=== PATIENT | female | born 1980 | race African-American/Black ===

== ENCOUNTER 2021-12-03 23:06 | Inpatient (IN) | payer MEDICAID, OTHER ==
[~2021-12-03] VITALS: Ht 162.6 cm; Wt 63.5 kg
[2021-12-04] MEDS ORDERED: LIDOCAINE HCL/PF 1% 10 MG/ML 5ML VIAL INFIL ONE (00:30)
[2021-12-04] MEDS ORDERED: ACETAMINOPHEN 500MG TABLET PO ONE (00:30)
[2021-12-04] MEDS ORDERED: TETANUS, DIPHTHERIA, PERTUSSIS VAC/PF 0.5ML (>10YR OLD) IM ONE (00:30)
[2021-12-04] MEDS ORDERED: BACITRACIN ZINC OINT UDPKT TOP ONE (00:30)
[2021-12-04] MEDS ORDERED: MORPHINE SULFATE 4 MG/ML CPJ (NOT FOR IM USE) IV ONE (05:00)
[2021-12-04 05:18] LABS: BASOPHILS % 0.9 % (0.0-2.0); HEMATOCRIT. 34.7 % (36.0-48.0); HEMOGLOBIN. 11.3 g/dL (12.0-16.0); LYMPHOCYTES % 24.7 % (20.0-50.0); MEAN CORPUSCULAR HEMOGLOBIN 21.9 pg (28.0-32.0); MEAN CORPUSCULAR VOLUME 67.2 fL (81.0-99.0); MONOCYTES % 4.4 % (2.0-8.0); PLATELET 358 x1000/uL (130-400); RED BLOOD CELL COUNT 5.17 mill/uL (4.2-5.4); RED CELL DISTRIBUTION WIDTH 18.5 % (11.6-14.6)
[2021-12-04 05:29] LABS: CHLORIDE 109 mEq/L (98-107)
[2021-12-04] MEDS ORDERED: CLONIDINE 0.1MG TABLET PO PRN (07:30)
[2021-12-04 08:30] LABS: PLATELET ESTIMATE NORMAL
[2021-12-04 09:25] VITALS: BP 156/99
[2021-12-04] MEDS ORDERED: TRAMADOL 50MG TABLET PO PRN (10:15)
[2021-12-04] MEDS ORDERED: ONDANSETRON HCL 4MG/2ML INJ IV PRN (11:30)
[2021-12-04] MEDS ORDERED: NALOXONE HCL 0.4MG/ML VIAL IV PRN (11:45)
[2021-12-04 12:00] VITALS: BP 147/90
[2021-12-04] MEDS: AMLODIPINE 10MG TABLET PO SCH (12:59)
[2021-12-04] MEDS: LOSARTAN POTASSIUM 50 MG TABLET PO SCH (12:59)
[2021-12-04] MEDS: TRAMADOL 50MG TABLET PO PRN (13:00)
[2021-12-04 15:22] LABS: *BARBITURATES SCREEN URINE NEGATIVE (NEGATIVE); *BENZODIAZEPINES SCREEN URINE NEGATIVE (NEGATIVE); *COCAINE SCREEN URINE NEGATIVE (NEGATIVE); CANNABINOID URINE SCREEN NEGATIVE (NEGATIVE); METHADONE URINE SCREEN NEGATIVE (NEGATIVE); OPIATES URINE SCREEN NEGATIVE (NEGATIVE); PHENCYCLIDINE URINE SCREEN NEGATIVE (NEGATIVE)
[2021-12-04 15:23] LABS: *AMPHETAMINES SCREEN URINE PRESUMTIVE POSITIVE (NEGATIVE)
[2021-12-04 16:00] VITALS: BP 141/89
[2021-12-04] MEDS: ACETAMINOPHEN 325MG TABLET PO PRN (17:26)
[2021-12-04] MEDS ORDERED: PNEUMOCOCCAL 23-VAL P-SAC VAC 0.5 ML IM ONE (18:45)
[2021-12-04 20:00] VITALS: BP 141/93
[2021-12-05] VITALS: BP 146/98
[2021-12-05 04:00] VITALS: BP 139/94
[2021-12-05 08:00] VITALS: BP 142/84
[2021-12-05] MEDS: AMLODIPINE 10MG TABLET PO SCH (09:31)
[2021-12-05] MEDS: LOSARTAN POTASSIUM 50 MG TABLET PO SCH (09:31)
[2021-12-05 12:00] VITALS: BP 138/83
[2021-12-05] MEDS: TRAMADOL 50MG TABLET PO PRN (15:19)
[2021-12-05 16:00] VITALS: BP 126/76
[2021-12-05 20:00] VITALS: BP 132/86
[2021-12-06] VITALS: BP 131/93
[2021-12-06 04:00] VITALS: BP 130/88
[2021-12-06 08:00] VITALS: BP 133/76
[2021-12-06] MEDS: LOSARTAN POTASSIUM 50 MG TABLET PO SCH (08:26)
[2021-12-06] MEDS: TRAMADOL 50MG TABLET PO PRN (08:27)
[2021-12-06] MEDS: AMLODIPINE 10MG TABLET PO SCH (08:27)
[2021-12-06 12:02] VITALS: BP 134/91
[2021-12-06] MEDS: ACETAMINOPHEN 325MG TABLET PO PRN (12:07)
[2021-12-06 14:24] VITALS: BP 134/91
== END 2021-12-06 14:45 | disposition home or self-care (01) | DRG 115 ==
LOC: ER 23:06 → 6WST 12-04 05:28 → EDBEDREQTM 12-04 05:33 → EDBEDREQ 12-04 05:33 → ER 12-04 09:51
PROVIDERS: ADMIT Internal Medicine; ATTEND Internal Medicine
PROC: 0HQ1XZZ Repair Face Skin, External Approach (ICD-10-PCS; principal; 2021-12-04)
DX: S02.2XXA Fracture of nasal bones, initial encounter for closed fracture (principal); J93.9 Pneumothorax, unspecified; E87.8 Other disorders of electrolyte and fluid balance, not elsewhere classified; S01.81XA Laceration without foreign body of other part of head, initial encounter; S22.31XA Fracture of one rib, right side, initial encounter for closed fracture; I10 Essential (primary) hypertension; F17.210 Nicotine dependence, cigarettes, uncomplicated; F15.10 Other stimulant abuse, uncomplicated; Z72.89 Other problems related to lifestyle; Y08.89XA Assault by other specified means, initial encounter; W18.30XA Fall on same level, unspecified, initial encounter; Y93.89 Activity, other specified; Y92.89 Other specified places as the place of occurrence of the external cause; Y99.8 Other external cause status
CPT/HCPCS: 36415; 70486; 71045; 71250; 80053; 80305; 85025; 90715; 94640; 99285; J2270; J3490